=== PATIENT | male | born 1985 | race Caucasian/White ===

== ENCOUNTER 2017-03-09 21:40 | Emergency (ER) | payer OTHER ==
[~2017-03-09] VITALS: Ht 185.4 cm; Wt 106.4 kg
[2017-03-09] MEDS ORDERED: KETOROLAC 30 MG/1 ML IM ONE (22:00)
[2017-03-09] MEDS ORDERED: KETOROLAC 30 MG/1 ML ONE (22:03)
[2017-03-09 22:36] LABS: HEMATOCRIT 49.1 % (39.2-51.8); HEMOGLOBIN 17.1 g/dL (13.7-18.0)
[2017-03-09 22:45] LABS: BLOOD UREA NITROGEN 19 mg/dL (7-18)
[2017-03-09 22:51] LABS: ASPARTATE AMINO TRANSFERASE 65 U/L (15-37); IS PT STATUS REG ER OR PRE ER? YES
[2017-03-09] MEDS ORDERED: HYDROcodone/APAP 5/325 TABLET PO ONE (23:30)
[2017-03-09] MEDS ORDERED: HYDROcodone/APAP 5/325 TABLET ONE (23:39)
[2017-03-10] MEDS ORDERED: SODIUM CHLORIDE FLUSH 10ML SYR IVF ONE (00:30)
[2017-03-10] MEDS ORDERED: ONDANSETRON 2MG/ML, 2ML IVPush ONE (00:30)
[2017-03-10] MEDS ORDERED: SODIUM CHLORIDE 0.9% 1,000ML IVBOLUS ONE (00:30)
[2017-03-10] MEDS ORDERED: PLEASE ENTER ALLERGIES MC SCH ×2 (00:30)
[2017-03-10] MEDS ORDERED: OMNIPAQUE 350 MG/ML, 100ML BOTTLE ONE (00:47)
[2017-03-10] MEDS ORDERED: ONDANSETRON 2MG/ML, 2ML ONE (00:54)
[2017-03-10 02:25] VITALS: BP 132/74
== END 2017-03-10 02:28 | disposition home or self-care (01) ==
LOC: ED 23:14
DX: R07.89 Other chest pain (principal); R10.33 Periumbilical pain; R79.89 Other specified abnormal findings of blood chemistry
CPT/HCPCS: 36415; 74022; 74177; 76700; 80053; 81003; 83690; 83880; 84484; 85025; 93005; 96360; 96372; 99285; J1885; J7030; Q9967